=== PATIENT | male | born 1950 | race Caucasian/White ===

== ENCOUNTER 2023-04-20 09:51 | Outpatient (CLI) | payer MEDICARE, BC, SELFPAY | END 2023-04-20 09:52 | disposition home or self-care (01) | LOC: MRI 10:00 | PROVIDERS: Referring Provider Internal Medicine; Visit Provider Physician Assistant | DX: R97.21 Rising PSA following treatment for malignant neoplasm of prostate (principal) | CPT/HCPCS: 72197; A9575 ==